=== PATIENT | male | born 2000 | race Caucasian/White ===

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

== ENCOUNTER 2021-11-01 14:07 | Outpatient (REF) | payer MEDICAID, SELFPAY ==
[2021-11-03 14:53] LABS: COVID-19 RT-PCR UVMMC Result Negative (Negative)
== END 2021-11-01 14:08 | disposition home or self-care (01) ==
LOC: LBN 14:07
PROVIDERS: Visit Provider Physician Assistant Medical
DX: Z20.822 Contact with and (suspected) exposure to COVID-19 (principal); J06.9 Acute upper respiratory infection, unspecified
CPT/HCPCS: U0003; 87070

== ENCOUNTER 2021-12-24 13:06 | Observation (INO) | payer MEDICAID, SELFPAY ==
[2021-12-24 13:21] VITALS: BP 124/82; PULSE 70; RESP 14; TEMP 36.5; O2SAT 99
[2021-12-24] MEDS: Acetaminophen 500 MG TAB 1000 MG PO (14:27)
--- NOTE | 2021-12-24 14:29 | ED.GENADUL_ITS ---
Discharge Plan Disposition Patient Disposition: STILL A PATIENT Discharge Details Chief Complaint: PsychEval Clinical Impression: Suicide ideation, Depression Primary Care Provider: Zenaida Herndon ED Provider: Franck Esquivel Medical Decision Making Patient presenting to the emergency department with chief complaint of depression and suicidal ideation. Patient reports that since ending a relationship with previous significant other has had significant depression, anxiety, and suicidal ideations. Patient states that the suicidal plan is to complete hanging from local bridge. Denies any medical complaints except for headache secondary to anxiety and stress. Physical exam is unremarkable. Smart form was completed for medical clearance that shows no need for laboratory work- up given that patient has ongoing history of depression, previous ho spitalizations for similar episodes but has been over 1 year. There is no concern at this time for any metabolic causes or new psychiatric worrisome findings that would prohibit admission to psychiatric facility. Safety plan along with patient observer who will be ordered and given the patient states mild headache secondary to stress and anxiety will order Tylenol. Patient denies any self-harm and does not appear intoxicated at this time so we will continue to monitor patient's condition and keep patient safe pending voluntary admission Medical Records Medical records reviewed: Yes I reviewed the patient's medical records. HPI General Mode of arrival: ambulatory . Date/Time Provider Initiated Documentation: 12/24/21 13:27 . Limitations to Documentation: no limitations . Information obtained by: patient, family, RN notes reviewed and old records reviewed . History of Present Illness 21 year old M presents to the emergency department with the chief complaint of Depression and suicidal ideation, described as mild, with intensity rated at 3. Quality is described as aching, and is localized to the head. Patient reports no radiation. Patient started experiencing this month(s) (4) and it has been constant. No relieving factors improve symptom(s), Other factors that worsen symptoms (Ending the relationship with significant other) . Patient notes headaches. Patient did receive the following treatments prior to arrival, none Related Data Allergies Allergy/AdvReac Type Severity Reaction Status Date / Time No Known Allergies Allergy Unverified 12/24/21 13:31 Seasonal Allergies Allergy Mild Uncoded 12/24/21 13:31 General Stated Complaint: PsychEval KARINA: 2 Review of Systems Constitutional Constitutional: Denies chills, Denies fever(s), Reports headache(s), Reports lethargy, Reports malaise and Reports poor appetite Eyes Eyes: Denies change in vision ENT Ears, Nose, Mouth, and Throat: Reports headache(s) Cardiovascular Cardiovascular: Denies chest pain and Denies dyspnea Respiratory Respiratory: Denies cough and Denies dyspnea Gastrointestinal Gastrointestinal: Denies abdominal pain and Denies vomiting Genitourinary Genitourinary: Denies difficulty urinating and Denies dysuria Integumentary/Breasts Skin/Breast: Denies rash Neurologic Neurologic: Reports headache(s), Denies seizure-like activity and Denies paresthesias Psychiatric Psychiatric: Reports as per HPI, Reports anxiety, Reports depression, Denies panic attacks, Denies homicidal ideation and Reports suicidal ideation PFSH All Active Problems (Updated 12/24/21 @ 16:06 by Franck Esquivel NP) Gender dysphoria (Acute) Discharge planning issues (Acute) Depression (Chronic) Suicide ideation (Acute) Normal weight, pediatric, BMI 5th to 84th percentile for age (Acute 05/01/15) Learning difficulty (Acute 05/01/15) Family disruption due to child in care of non-parental family member (Acute 05/01/15) Encounter for routine child health examination with abnormal findings (Acute 05/01/15) Allergic rhinitis (Acute 05/01/15) Acne vulgaris (Acute 05/05/17) mod inflam and scarring - declines tx at this x Medical History (Updated 12/24/21 @ 16:06 by Franck Esquivel NP) Environmental allergies Learning problem Surgical History Circumcision Family History Mother Mental disorder bipolar Father No problems noted. Brother Cystic fibrosis Social History Smoking/Tobacco Use Status: Former Tobacco Use Smoking risk assessment performed?: Yes Alcohol Intake: never Drug use: Occasionally Substance use type: marijuana Education Level: high school Details: [employer] Pets and animals: No (rabbits, chickens, 2 dogs, 3 cats) Current gender identity: trans [id number] What type of physical activity do you participate in: other Details: basketball, baseball, skate board Seatbelt use: always Helmet use: Yes Water heater temp set <120 deg: Yes Fire extinguisher in home: Yes Carbon monox detector in home: Yes Firearms in home: Yes Firearms unloaded and locked: Yes Do you feel safe at home: Yes Do you feel safe in your relationship?: Yes Additional Social history: Now living with mayank in [facility]. Graduated high school. Working at [employer]. Exam Const General: cooperative Orientation: alert, awake and oriented x3 Limitations: mental status not altered [facility] Head: normal to inspection, normocephalic and atraumatic Ears: hearing grossly normal bilaterally Mouth: moist mucous membranes Eyes General: appearance normal, both eyes and all related structures Pupils: PERRL EOM: EOM intact bilaterally Neck Thyroid: thyroid normal Resp Effort & Inspection: normal respiratory effort, able to speak in complete sentences and no respiratory distress Auscultation: clear to auscultation bilaterally Cardio Rate: regular rate and not tachycardic Rhythm: regular rhythm Heart Sounds: S1 normal, S2 normal, no click, no gallops, no murmurs and no rubs Neuro General: patient alert, patient awake, patient oriented x3, gait normal, moves all extremities and no focal motor deficits Cranial Nerves: CN's II-XI intact bilaterally Cognition: normal cognition Speech: speech normal Gait: normal gait Motor: muscle tone normal throughout Sensory Exam: no sensory deficits noted Coordination: [id number] test normal Psych Speech and Movement: speech and movement normal and speech clear Affect: sad Attitude: cooperative Thought Process: normal Thought Content: normal and suicidality Course Vital Signs Vital signs: Vital Signs Temperature 36.5 C 12/24/21 13:21 Pulse 70 12/24/21 13:21 Respiratory Rate 14 12/24/21 13:21 Blood Pressure 124/82 12/24/21 13:21 Pulse Oximetry 99 12/24/21 13:21 Temperature 36.5 C 12/24/21 13:21 Temperature Source Tympanic 12/24/21 13:21 Pulse 70 12/24/21 13:21 Respiratory Rate 14 12/24/21 13:21 Respiratory Effort 12/24/21 13:30 Respiratory Depth Normal 12/24/21 13:30 Respiratory Pattern Normal 12/24/21 13:30 Blood Pressure 124/82 12/24/21 13:21 Blood Pressure Position Supine 12/24/21 13:21 Pulse Oximetry 99 12/24/21 13:21 Oxygen Delivery Method Room Air 12/24/21 13:30 Oxygen Flow Rate 0 12/24/21 13:30 Pain Level 3 12/24/21 13:21 Sign Out Sign Out Data: Sign Out Comment: Patient signed out pending psychiatric admission to accepting facility. Patient with suicidal ideations and major depression. Labs not needed due to SMART Psych Lab assessment revealing no need for laboratory work- up. Patient resting comfortably in bed with family at bedside and sitter in place. Last updated by Franck Esquivel, HEALTH CARE SANITARY TECHNICIAN at 12/24/21 15:20
[2021-12-24 15:00] LABS: Source Nasal/Nares
--- NOTE | 2021-12-24 15:32 | CMSP_ITS ---
- If Service Date Differs Date of service: 12/24/21 Time of Service: 15:32 Care Management Safety Plan Status: Voluntary - Reason for Wait Reason for Wait: Inpatient Admission VOLUNTARY FOR INPATIENT PSYCHIATRIC STABILIZATION. Patient is appropriate in all interactions since arriving at [facility]; Pt has demonstrated appropriate coping and communication skills, has articulated his or her needs and concerns and is fully engaged during staff interactions. A huddle is held at 16:00 with Jovanni, ED provider, Luna, nursing supervisor records change, Beth, charge nurse, NILDA Roasles, NILDA Akers, and MEG Jc, in attendance. Safety plan has been established with patient, and care team, to adhere to patient goals, identify restrictions based on behavioral status, address nutrition, and determine allowed personal belongings, tools for hygiene and personal care. Determine level of activity including ambulation, level of supervision, visitors, and determine privileges based on behaviors and level of engagement by pt. SAFETY PLAN: 1. Will remain on suicide precautions. In Paper Clothes 2. Will remain in room under direct supervision of one-on-one staff at all times provided by CPSO, ARTURO, PHARMACY STOCK CLERK aviation warfare systems operator. 3. May have paper cups, plates, finger foods as well as a cardboard spoon with which to eat meals. 4. Follow [facility] Management of the Admitted Behavioral Health Patient policy. 5. Shower permitted with escort at RN discretion. 6. No personal belongings. 7. Visitors: Per [facility] visitor policy and at RN discretion. 8. Activities: soft cart items, music tablet, television, and other activities at RN discretion. 9. Bathroom privileges with escort in the ED, available in room without limitation on M/S. 10. Phone: may use [employer] phone at RN discretion. 11. Due to VOLUNTARY status, if patient wishes to leave [facility], staff will contact [facility] Crisis Screener ([phone]) and On-Call Corporate Webmaster ([phone]) as soon as possible. In the event of elopement, notify [facility] Police ([phone]). Patient is currently voluntarily at [facility] and seeking inpatient admission when a bed becomes available. [facility] Frontline Paper Folder will continue seeking placement. Please contact the Loss Prevention Representative Corporate Webmaster ([phone]) and [facility] Paper Folder ([phone]) for any needed changes in the Safety Plan. Safety plan has been provided to interdepartmental care team.
--- NOTE | 2021-12-24 15:32 | PDOC.CMSAFED ---
- If Service Date Differs Date of service: 12/24/21 Time of Service: 15:32 Care Management Safety Plan Status: Voluntary - Reason for Wait Reason for Wait: Inpatient Admission VOLUNTARY FOR INPATIENT PSYCHIATRIC STABILIZATION. Patient is appropriate in all interactions since arriving at [facility]; Pt has demonstrated appropriate coping and communication skills, has articulated his or her needs and concerns and is fully engaged during staff interactions. A huddle is held at 16:00 with Jovanni, ED provider, Luna, nursing supervisor coremaker, Beth, charge nurse, NILDA Rosales, NILDA Akers, and MEG Jc, in attendance. Safety plan has been established with patient, and care team, to adhere to patient goals, identify restrictions based on behavioral status, address nutrition, and determine allowed personal belongings, tools for hygiene and personal care. Determine level of activity including ambulation, level of supervision, visitors, and determine privileges based on behaviors and level of engagement by pt. SAFETY PLAN: 1. Will remain on suicide precautions. In Paper Clothes 2. Will remain in room under direct supervision of one-on-one staff at all times provided by CPSO, ARTURO, FLOOR WORKER WELL SERVICE winder contort operator. 3. May have paper cups, plates, finger foods as well as a cardboard spoon with which to eat meals. 4. Follow [facility] Management of the Admitted Behavioral Health Patient policy. 5. Shower permitted with escort at RN discretion. 6. No personal belongings. 7. Visitors: Per [facility] visitor policy and at RN discretion. 8. Activities: soft cart items, music tablet, television, and other activities at RN discretion. 9. Bathroom privileges with escort in the ED, available in room without limitation on M/S. 10. Phone: may use [employer] phone at RN discretion. 11. Due to VOLUNTARY status, if patient wishes to leave [facility], staff will contact [facility] Crisis Screener ([phone]) and On-Call Creative Writer ([phone]) as soon as possible. In the event of elopement, notify [facility] Police ([phone]). Patient is currently voluntarily at [facility] and seeking inpatient admission when a bed becomes available. [facility] Frontline Progressive Care Unit Registered Nurse will continue seeking placement. Please contact the Parts Back Counter Man Creative Writer ([phone]) and [facility] Progressive Care Unit Registered Nurse ([phone]) for any needed changes in the Safety Plan. Safety plan has been provided to interdepartmental care team.
--- NOTE | 2021-12-24 15:41 | NUR.NOTE ---
Pt now accepting of getting some food. Food items ordered. denies other needs at this time
[2021-12-24 15:51] LABS: COVID-19 PCR Negative (Negative)
--- NOTE | 2021-12-24 15:54 | PDOC.ERCMPRO ---
- If Service Date Differs Date of service: 12/24/21 Time of Service: 15:54 Care Management Progress Note S/O: Rakesh, who prefers to be known as Jagdish and who uses the pronoun of they, reports worsening depression and intermittent suicidal ideation over the past 4 months, following the break-up of a relationship. Jagdish has struggled with depression and SI off and on over the past few years and has had two psychiatric hospitalizations at [facility] (July 2018 and December 2020). Jagdish has a history of cutting but denies recent self-harming behaviors. A: Jagdish presents in the ED on 12/24/21 for suicidal ideation. P: Jagdish was evaluated by Renea, crisis screener, at [facility] prior to coming to the hospital. Jagdish was found to meet criteria for a voluntary psychiatric hospitalization, so they were sent to [facility] where they will remain until a bed can be secured for them. Referrals are faxed to [facility], [facility], [facility], and [facility] for review. CM will continue to follow. - Status Status: Voluntary - Reason for Wait Reason for Wait: Inpatient Admission
--- NOTE | 2021-12-24 16:33 | NUR.NOTE ---
Parent (Dad) left. Plan for mother to visit later this evening. Possible admission to floor to awaiting psych inpt bed. No bed currently available. Denies other needs at this time
--- NOTE | 2021-12-24 17:05 | NUR.NOTE ---
Spoke with [facility], hopefully there will be a be tomorrow. requesting COVID and UDS. orders obtained and will send results to [facility] once recieved.
[2021-12-24 17:32] LABS: *AMPHETAMINES SCREEN URINE Negative (Negative); *BARBITURATES SCREEN URINE Negative (Negative); *BENZODIAZEPINES SCREEN URINE Negative (Negative); Cannabinoids THC Positive (Negative); Cocaine Screen,Urine Negative (Negative); METHADONE URINE SCREEN Negative (Negative); OPIATES URINE SCREEN Negative (Negative)
[2021-12-24 17:33] LABS: Tricyclic Antidepressants Negative (Negative)
--- NOTE | 2021-12-24 18:41 | W.ED.GENAD ---
Discharge Plan Disposition Patient Disposition: STILL A PATIENT Discharge Details Clinical Impression: Suicide ideation, Depression Primary Care Provider: Zenaida Herndon ED Provider: Franck Esquivel General Mode of arrival: ambulatory. Date/Time Provider Initiated Documentation: 12/24/21 13:27. Limitations to Documentation: no limitations. Information obtained by: patient, family, RN notes reviewed and old records reviewed. History of Present Illness with intensity rated at 3. Quality is described as aching, and is localized to the head. No relieving factors improve symptom(s), Other factors that worsen symptoms (Ending the relationship with significant other) . Patient notes headaches. Patient did receive the following treatments prior to arrival, none Related Data Allergies Allergy/AdvReac Type Severity Reaction Status Date / Time No Known Allergies Allergy Unverified 12/24/21 13:31 Seasonal Allergies Allergy Mild Uncoded 12/24/21 13:31 General Stated Complaint: PsychEval KARINA: 2 PFSH All Active Problems (Updated 12/24/21 @ 16:06 by Franck Esquivel NP) Gender dysphoria (Acute) Discharge planning issues (Acute) Depression (Chronic) Suicide ideation (Acute) Normal weight, pediatric, BMI 5th to 84th percentile for age (Acute 05/01/15) Learning difficulty (Acute 05/01/15) Family disruption due to child in care of non-parental family member (Acute 05/01/15) Encounter for routine child health examination with abnormal findings (Acute 05/01/15) Allergic rhinitis (Acute 05/01/15) Acne vulgaris (Acute 05/05/17) mod inflam and scarring - declines tx at this x Medical History (Updated 12/24/21 @ 16:06 by Franck Esquivel NP) Environmental allergies Learning problem Surgical History Circumcision Family History Mother Mental disorder bipolar Father No problems noted. Brother Cystic fibrosis Social History Smoking/Tobacco Use Status: Former Tobacco Use Smoking risk assessment performed?: Yes Alcohol Intake: never Drug use: Occasionally Substance use type: marijuana Education Level: high school Details: [employer] Pets and animals: No (rabbits, chickens, 2 dogs, 3 cats) Current gender identity: trans [id number] What type of physical activity do you participate in: other Details: basketball, baseball, skate board Seatbelt use: always Helmet use: Yes Water heater temp set <120 deg: Yes Fire extinguisher in home: Yes Carbon monox detector in home: Yes Firearms in home: Yes Firearms unloaded and locked: Yes Do you feel safe at home: Yes Do you feel safe in your relationship?: Yes Additional Social history: Now living with mayank in [facility]. Graduated high school. Working at [employer]. Course Vital Signs Vital signs: Vital Signs Temperature 36.5 C 12/24/21 13:21 Pulse 70 12/24/21 13:21 Respiratory Rate 14 12/24/21 13:21 Blood Pressure 124/82 12/24/21 13:21 Pulse Oximetry 99 12/24/21 13:21 Temperature 36.5 C 12/24/21 13:21 Temperature Source Tympanic 12/24/21 13:21 Pulse 70 12/24/21 13:21 Respiratory Rate 14 12/24/21 13:21 Respiratory Effort 12/24/21 13:30 Respiratory Depth Normal 12/24/21 13:30 Respiratory Pattern Normal 12/24/21 13:30 Blood Pressure 124/82 12/24/21 13:21 Blood Pressure Position Supine 12/24/21 13:21 Pulse Oximetry 99 12/24/21 13:21 Oxygen Delivery Method Room Air 12/24/21 13:30 Oxygen Flow Rate 0 12/24/21 13:30 Pain Level 3 12/24/21 13:21 Lab/Test Results Lab/Test Results: Laboratory Tests Range/Units 12/24/21 12/24/21 14:54 17:12 Urine Opiates Screen (Negative) Negative Urine Methadone Screen (Negative) Negative Ur Barbiturates Screen (Negative) Negative Ur Tricyclics Screen (Negative) Negative Ur Amphetamines Screen (Negative) Negative U Benzodiazepines Scrn (Negative) Negative Urine Cocaine Screen (Negative) Negative Ur THC Screen (Negative) Positive A COVID-19 Source Nasal/Nares SARS-CoV-2 (PCR) (Negative) Negative Sign Out Sign Out Data: Sign Out Comment: Patient signed out pending psychiatric admission to accepting facility. Patient with suicidal ideations and major depression. Labs not needed due to [facility] Lab assessment revealing no need for laboratory work-up. Patient resting comfortably in bed with family at bedside and sitter in place. Last updated by Franck Esquivel NP at 12/24/21 15:20
[2021-12-24 20:35] VITALS: BP 120/62; PULSE 70; RESP 17; TEMP 37; O2SAT 98
[2021-12-24] MEDS: Zolpidem 5 MG TAB PO (22:57)
--- NOTE | 2021-12-24 23:42 | HPE_ITS ---
Date of service: 12/24/21 Time of Service: 22:12 Assessment and Plan Assessment and plan (1) Suicide ideation: Status: Acute Assessment and plan: Admitted for while awaiting bed for iinpatient psychiatric care, see below. (2) Depression: Status: Chronic Assessment and plan: Exacerbation of chronic depression. I encouraged them to consider senior living medication to help stabilize. For now, offered zoldidem to help sleep, defer additional medication to psychiatry. (3) Gender dysphoria: Status: Acute Assessment and plan: Continue to support Israels identity, follow up as outpatient. (4) DVT prophylaxis: Status: Acute Assessment and plan: Low risk, no medical prophylaxis indicated. (5) Discharge planning issues: Status: Acute Assessment and plan: Medically cleared pending bed at [facility] History of Present Illness History of Present Illness Chief Complaint: depression Narrative: 21 yo gender non-conforming M (they/them, goes by Ele) with a history of major depression and multiple admissions for suicidal ideation, presents with increasing depression over the past 4 months with suicidal ideation. They identify a breakup with former partner as a trigger. They feel safe right now in the hospital. Only current complaint is that they have a lot of thoughts running through their head, hard to settle down to sleep. THey haven't been on medication for depression during this time. Ele was cleared medically for psychiatric placement, bed at [facility] pending tomorrow. Review of Systems Constitutional Constitutional: Denies chills, Denies fever(s), Reports headache(s) and Reports poor appetite Eyes Eyes: Denies change in vision ENT Ears, Nose, Mouth, and Throat: Reports headache(s) Cardiovascular Cardiovascular: Denies chest pain and Denies dyspnea Respiratory Respiratory: Denies cough and Denies dyspnea Gastrointestinal Gastrointestinal: Denies abdominal pain and Denies vomiting Genitourinary Genitourinary: Denies difficulty urinating and Denies dysuria Integumentary/Breasts Skin/Breast: Denies rash Neurologic Neurologic: Reports headache(s), Denies seizure-like activity and Denies paresthesias Psychiatric Psychiatric: Reports as per HPI, Reports anxiety, Reports depression, Denies panic attacks, Denies homicidal ideation and Reports suicidal ideation PFSH All Active Problems DVT prophylaxis (Acute) Gender dysphoria (Acute) Discharge planning issues (Acute) Depression (Chronic) Suicide ideation (Acute) Normal weight, pediatric, BMI 5th to 84th percentile for age (Acute 05/01/15) Learning difficulty (Acute 05/01/15) Family disruption due to child in care of non-parental family member (Acute 05/01/15) Encounter for routine child health examination with abnormal findings (Acute 05/01/15) Allergic rhinitis (Acute 05/01/15) Acne vulgaris (Acute 05/05/17) mod inflam and scarring - declines tx at this x Medical History Adjustment disorder with depressed mood (06/27/13) Environmental allergies Learning problem Surgical History Circumcision Family History (Updated 12/24/21 @ 23:50 by Austin Ocampo) Mother Mental disorder bipolar Father Mental disorder biologic Brother Cystic fibrosis Social History (Updated 12/24/21 @ 23:51 by Austin Ocampo) Smoking/Tobacco Use Status: Former Tobacco Use Smoking risk assessment performed?: Yes Alcohol Intake: never Drug use: Occasionally Substance use type: marijuana Education Level: high school Details: graduated [employer] Pets and animals: No (rabbits, chickens, 2 dogs, 3 cats) Current gender identity: trans [id number] What type of physical activity do you participate in: other Details: basketball, baseball, skate board Seatbelt use: always Helmet use: Yes Water heater temp set <120 deg: Yes Fire extinguisher in home: Yes Carbon monox detector in home: Yes Firearms in home: Yes Firearms unloaded and locked: Yes Do you feel safe at home: Yes Do you feel safe in your relationship?: Yes Additional Social history: Now living with mother and stepfather again in [facility]. Graduated high school. Working at [employer]. Meds Allergies and Home Medications Allergies Allergy/AdvReac Type Severity Reaction Status Date / Time No Known Allergies Allergy Unverified 12/24/21 13:31 Seasonal Allergies Allergy Mild Uncoded 12/24/21 13:31 Home Medications Medication Instructions Recorded Confirmed Type Unknown [No Known Home Meds] 12/24/21 12/24/21 History Exam Narrative Exam Narrative: GEN: Alert and oriented, pleasant and cooperative, gives linear history. No acute distress at rest. HEENT: Head atraumatic. Conjunctiva clear, no icterus. PEERL, EOMI. no rhinorrhea. MMM, OP benign. Neck is supple with no masses or lymphadenopathy, normal thyroid LUNGS: CTAB with normal effort CV: RRR with no murmurs, gallops, or rubs. ABD: +BS, soft, NT/ND EXT: no cyanosis, clubbing, or edema MSK: No joint redness or swelling NEURO: CN 2-12 grossly intact. Normal movement of 4 extremities. Normal speech and coordination, no tremor SKIN: No rashs or open wounds. shallow cutting scar left forearm PSYCH: normal mood and affect, talkative, no hallucinations, normal thought process Results Labs Labs: Laboratory Results - last 24 hr 12/24/21 12/24/21 14:54 17:12 Urine Opiates Screen Negative Urine Methadone Screen Negative Ur Barbiturates Screen Negative Ur Tricyclics Screen Negative Ur Amphetamines Screen Negative U Benzodiazepines Scrn Negative Urine Cocaine Screen Negative Ur THC Screen Positive A COVID-19 Source Nasal/Nares SARS-CoV-2 (PCR) Negative Last Vital Signs Temp 37 C 12/24/21 20:35 Pulse 70 12/24/21 20:35 Resp 17 12/24/21 20:35 BP 120/62 12/24/21 20:35 Pulse Ox 98 12/24/21 20:35
[2021-12-25 08:19] VITALS: BP 122/81; PULSE 69; RESP 16; TEMP 36; O2SAT 100
--- NOTE | 2021-12-25 10:58 | DSE_ITS ---
Date of service: 12/25/21 Time of Service: 09:59 DS: Diagnosis Discharge Diagnosis (1) Suicide ideation: Start date: 12/25/21 Start time: 11:01 Status: Acute Asessment and Plan: patient denies SI however admitted for SI, voluntary, has been accepted at [facility] and will be discharged there today transported via sherrif (2) Depression: Start date: 12/25/21 Start time: 11:01 Status: Chronic Asessment and Plan: Exacerbation of chronic depression. zoldidem to help sleep, defer additional medication to psychiatry. (3) Gender dysphoria: Start date: 12/25/21 Start time: 11:01 Status: Acute Asessment and Plan: Continue to support Jagdish's identity, follow up as outpatient. discussed with Dr. Hooker Discharge Plan Disposition Patient Disposition: [facility] Condition: Stable Discharge Details Reason For Visit: Depression Admit Date/Time: 12/24/21 19:19 Admit Provider: Austin Ocampo Attending Provider: Austin Ocampo [facility] Course: 21 yo gender non-conforming M (they/them, goes by [email or web address]) with a history of major depression and multiple admissions for suicidal ideation, presents with increasing depression over the past 4 months with suicidal ideation.? They identify a breakup with former partner as a trigger.? They feel safe right now in the hospital.? Only current complaint is that they have a lot of thoughts running through their head, hard to settle down to sleep.?He has been medically cleared by . They haven't been on medication for depression during this time. He has been accepted to [facility] and will transported via fashion designer. Home Meds and New Rx's Prescriptions: No Action No Known Home Meds Discharge Instructions Stand Alone Forms: Nursing Discharge Form Activity:: Activity as Tolerated Equipment/Supplies:: No Equipment Needed Diet:: As Tolerated Discharge Orders Discharge Orders: Discharge Order (Routine); Ordered 12/25/21 Ordered By: Bella Robertson DS: Summary Time Spent with Patient providing and/or coordinating discharge services: Less than 30 minutes Status at Discharge Functional status at discharge: independent ambulation Overall status at discharge: patient is progressing back to baseline Mental Status: other Speech and Movement: other Mood: other Affect: other Exam Const General: cooperative, comfortable and no acute distress Nutritional Appearance: obese Orientation: alert, awake and oriented x3 Eyes Eyelids: eyelids normal Pupils: PERRL EOM: EOM intact bilaterally Neck Neck: normal visual inspection and no JVD Lymphatic: no lymphadenopathy noted Resp Effort & Inspection: normal respiratory effort Auscultation: clear to auscultation bilaterally Cardio Jugular venous pressure: no JVD Rhythm: regular rhythm Heart Sounds: S1 normal GI Auscultation: normal bowel sounds Skin General skin exam: no rashes or lesions noted Neuro General: patient alert, patient awake and patient oriented x3 Cognition: normal cognition Speech: speech normal Gait: normal gait Extrem General: normal to inspection, full ROM and no clubbing, cyanosis or edema Psych Mental Status: other Speech and Movement: other Mood: other Affect: other DS: Data Vitals/I&O Vitals and I&O: Vital Signs Temperature 36.0 C L 12/25/21 08:19 Temperature Source Tympanic 12/25/21 08:19 Pulse 69 12/25/21 08:19 Pulse Rhythm Regular 12/25/21 03:03 Respiratory Rate 16 12/25/21 08:19 Respiratory Effort Non-Labored 12/25/21 03:03 Respiratory Depth Normal 12/25/21 03:03 Respiratory Pattern Normal 12/25/21 03:03 Blood Pressure 122/81 12/25/21 08:19 Blood Pressure Position Supine 12/24/21 13:21 Pulse Oximetry 100 12/25/21 08:19 Oxygen Delivery Method Room Air 12/25/21 08:19 Oxygen Flow Rate 0 12/25/21 08:19 Pain Level 3 12/24/21 13:21 Intake & Output 12/24/21 12/24/21 12/25/21 11:59 23:59 11:59 Intake Total 240 / 240 Balance 240 / 240 Weight 61.7 kg Intake: Oral 240 / 240 Other: Urine Appearance Clear Voiding Methods Toilet Toilet Data Completed and Pending Labs on day of discharge: Labs from last 24 hours 12/24/21 12/24/21 17:12 14:54 Urine Opiates Screen Negative Urine Methadone Screen Negative Ur Barbiturates Screen Negative Ur Tricyclics Screen Negative Ur Amphetamines Screen Negative U Benzodiazepines Scrn Negative Urine Cocaine Screen Negative Ur THC Screen Positive A COVID-19 Source Nasal/Nares SARS-CoV-2 (PCR) Negative PFSH All Active Problems DVT prophylaxis (Acute) Gender dysphoria (Acute) Discharge planning issues (Acute) Depression (Chronic) Suicide ideation (Acute) Normal weight, pediatric, BMI 5th to 84th percentile for age (Acute 05/01/15) Learning difficulty (Acute 05/01/15) Family disruption due to child in care of non-parental family member (Acute 05/01/15) Encounter for routine child health examination with abnormal findings (Acute 05/01/15) Allergic rhinitis (Acute 05/01/15) Acne vulgaris (Acute 05/05/17) mod inflam and scarring - declines tx at this x Medical History Adjustment disorder with depressed mood (06/27/13) Environmental allergies Learning problem Surgical History Circumcision Family History Mother Mental disorder bipolar Father Mental disorder biologic Brother Cystic fibrosis Social History Smoking/Tobacco Use Status: Former Tobacco Use Smoking risk assessment performed?: Yes Alcohol Intake: never Drug use: Occasionally Substance use type: marijuana Education Level: high school Details: graduated [employer] Pets and animals: No (rabbits, chickens, 2 dogs, 3 cats) Current gender identity: trans [id number] What type of physical activity do you participate in: other Details: basketba ll, baseball, skate board Seatbelt use: always Helmet use: Yes Water heater temp set <120 deg: Yes Fire extinguisher in home: Yes Carbon monox detector in home: Yes Firearms in home: Yes Firearms unloaded and locked: Yes Do you feel safe at home: Yes Do you feel safe in your relationship?: Yes Additional Social history: Now living with mother and stepfather again in [facility]. Graduated high school. Working at [employer].
--- NOTE | 2021-12-25 14:51 | CMDISCH_ITS ---
- If Service Date Differs Date of service: 12/25/21 Time of Service: 14:51 LACE Index Scoring Tool - Questions: Length of Stay (in days): 1 Acuity (Admit via E.D.?): Yes E.D. Visits: 1 - Answers: Total Score: 5 Risk of Readmission: Low Risk Care Management Discharge Reason for Hospitalization: Depression Discharge Plan: Rakesh, who goes by Jew was transferred to [facility] today. He was transported by [facility], coordinated by CM. He will follow up with [facility], his PCP and discharge plan of care. Patient/Family Education Needs: Review discharge instructions and limitations, discussion of self care needs including ask me three. Services Needed at Discharge: Psychiatric Facility ([facility]), Transportation ([facility]) - Disposition Disposition: [place]
== END 2021-12-25 12:31 | disposition short-term general hospital (02) ==
LOC: ER 19:19 → MS 20:17
PROVIDERS: Nurse Practitioner Family; Admitting Provider Family Medicine; Emergency Provider Student in an Organized Health Care Education/Training Program; Visit Provider Family Medicine
DX: F32.9 Major depressive disorder, single episode, unspecified (principal); R45.851 Suicidal ideations; F64.9 Gender identity disorder, unspecified; Z20.822 Contact with and (suspected) exposure to COVID-19; R51.9 Headache, unspecified; F81.9 Developmental disorder of scholastic skills, unspecified; J30.9 Allergic rhinitis, unspecified; Z63.8 Other specified problems related to primary support group
CPT/HCPCS: 80307; 87635; 99285; 99217; G0378